=== PATIENT | male | born 1985 | race Caucasian/White ===

== ENCOUNTER → 2020-07-02 | Outpatient (CLI) | payer BC ==
[2020-07-02 09:58] LABS: HEMATOCRIT 45 % (40-54); HEMOGLOBIN 15.8 G/DL (13.3-17.7); LYMPHOCYTES % (AUTO) 35 % (12-44); MEAN CORPUSCULAR HEMOGLOBIN 31 PG (25-34); MEAN CORPUSCULAR HGB CONC 35 G/DL (32-36); MEAN CORPUSCULAR VOLUME 89 FL (80-99); MEAN PLATELET VOLUME 10.3 FL (7.4-10.4); MONOCYTES % (AUTO) 5 % (0-12); NEUTROPHILS % (AUTO) 57 % (42-75); PLATELET COUNT 163 10^3/uL (130-400); WHITE BLOOD COUNT 5.5 10^3/uL (4.3-11.0)
[2020-07-02 09:59] LABS: BASOPHILS % (AUTO) 1 % (0-10); EOSINOPHILS # (AUTO) 0.1 10^3/uL (0.0-0.3); EOSINOPHILS % (AUTO) 2 % (0-10); MONOCYTES # (AUTO) 0.3 X 10^3 (0.0-1.0); NEUTROPHILS # (AUTO) 3.1 X 10^3 (1.8-7.8)
[2020-07-02 10:15] LABS: ALKALINE PHOSPHATASE 75 U/L (40-136); BILIRUBIN,TOTAL 0.6 MG/DL (0.1-1.0); BUN/CREATININE RATIO 13; CALCIUM 9.5 MG/DL (8.5-10.1); CARBON DIOXIDE 25 MMOL/L (21-32); CHLORIDE 105 MMOL/L (98-107); CREATININE SERUM 0.99 MG/DL (0.60-1.30); GFR ESTIMATED > 60; GLUCOSE 106 MG/DL (70-105); POTASSIUM 4.5 MMOL/L (3.6-5.0); SODIUM 140 MMOL/L (135-145)
[2020-07-02 10:16] LABS: ALANINE AMINOTRANSFERASE 23 U/L (0-55); ALBUMIN 4.7 GM/DL (3.2-4.5); TOTAL PROTEIN 7.1 GM/DL (6.4-8.2)
[2020-07-02 15:02] LABS: CHOLESTEROL 135 MG/DL (< 200); HDL CHOLESTEROL 44 MG/DL (40-60); TRIGLYCERIDES 111 MG/DL (<150); VLDL CHOLESTEROL 22 MG/DL (5-40)
== END ==
LOC: LAB FS 09:35
PROVIDERS: ATTEND Family Medicine
DX: Z00.00 Encounter for general adult medical examination without abnormal findings (principal); R20.0 Anesthesia of skin
CPT/HCPCS: 36415; 80053; 80061; 82607; 84443; 85025